=== PATIENT | female | born 1935 | race Hispanic/Latino ===

== ENCOUNTER 2018-12-19 11:02 | Day surgery (SDC) | payer MEDICARE ==
[2018-12-08 08:50] VITALS: BMI 29.2
[2018-12-19 12:05] LABS: BASO # 0.02 K/mm3 (0.0-2.0); BASO % 0.2 % (0.0-3.0); EOS % 0.3 % (1.5-5.0); HEMOGLOBIN 12.6 g/dL (12.0-16.0); LYMPH # 1.9 (1.2-3.4); LYMPH % 15.3 % (22.0-35.0); MEAN CELL VOLUME 93.1 fl (80.0-105.0); MEAN CORPUSCULAR HEMOGLOBIN 29.9 pg (25.0-35.0); MEAN CORPUSCULAR HGB CONC 32.1 g/dl (31.0-37.0); MEAN PLATELET VOLUME 10.1 fl (7.0-11.0); MONO % 8.6 % (1.0-6.0); RBC 4.22 10^6/uL (3.5-6.1); RED CELL DISTRIBUTION WIDTH 13.6 % (11.5-14.5); WHITE BLOOD COUNT 12.1 10^3/uL (4.5-11.0)
[2018-12-19 12:09] LABS: BLOOD UREA NITROGEN 17 mg/dL (7-21); CALCIUM 9.8 mg/dL (8.4-10.5); GFR NON-AFRICAN AMERICAN > 60; INR 1.11; PARTIAL THROMBOPLASTIN TIME 27.3 Seconds (26.9-38.3); PROTHROMBIN TIME 12.5 SECONDS (9.4-12.5)
[2018-12-19] MEDS ORDERED: Lidocaine PF 2% (5 ml) Inj (For Cardiac Arrhy) ONE (13:21)
[2018-12-19] MEDS ORDERED: Iodixanol 320 MG/ML 100 ML BOTTLE IV ONE (13:22)
[2018-12-19] MEDS ORDERED: Iodixanol 320 MG/ML 200 ML BOTTLE IV ONE (13:22)
[2018-12-19] MEDS ORDERED: Heparin 2,000 ML IV ONE (13:22)
[2018-12-19] MEDS ORDERED: Iohexol 350mgl/ml 50 ML ONE (13:22)
[2018-12-19] MEDS ORDERED: Adenosine 90 mg/30mL IV ONE (13:25)
[2018-12-19] MEDS ORDERED: Flumazenil 0.1 mg/ml Inj (5ml) IVP ONE (13:55)
[2018-12-19] MEDS ORDERED: Midazolam 2 MG/2 ML VIAL ONE ×3 (13:55→15:06)
[2018-12-19] MEDS ORDERED: Naloxone 0.4 mg/ml Inj (Adult) ONE (13:56)
[2018-12-19] MEDS ORDERED: Midazolam 2 MG/2 ML VIAL IV ONE ×2 (14:00→14:05)
[2018-12-19] MEDS ORDERED: DiphenhydrAMINE 50 mg/ml Inj ONE (15:50)
[2018-12-19] MEDS ORDERED: Sodium Chloride 0.9% 1,000 ML IV STA (16:12)
--- NOTE | 2018-12-19 17:08 | CARD ---
APPROVED REPORT Date of service: 12/19/2018 EKG Measurement Heart [id number] IN P17 [id number] <Conclusion> Normal sinus rhythm Baseline artifact normal ECG
[2018-12-19 19:08] VITALS: RESP 18; TEMP 98.5; O2SAT 96
[2018-12-19 19:48] LABS: HEMOGLOBIN 10.8 g/dL (12.0-16.0); MEAN CELL VOLUME 95.4 fl (80.0-105.0); RBC 3.51 10^6/uL (3.5-6.1); WHITE BLOOD COUNT 11.2 10^3/uL (4.5-11.0)
[2018-12-19 19:49] LABS: BASO # 0.11 K/mm3 (0.0-2.0); EOS % 0.1 % (1.5-5.0); LYMPH # 1.2 (1.2-3.4); LYMPH % 11.1 % (22.0-35.0); MEAN CORPUSCULAR HEMOGLOBIN 30.8 pg (25.0-35.0); MEAN CORPUSCULAR HGB CONC 32.2 g/dl (31.0-37.0); MEAN PLATELET VOLUME 10.6 fl (7.0-11.0); MONO # 0.9 (0.1-0.6); MONO % 7.8 % (1.0-6.0); RED CELL DISTRIBUTION WIDTH 13.9 % (11.5-14.5)
[2018-12-19 19:54] LABS: BLOOD UREA NITROGEN 17 mg/dL (7-21); CALCIUM 8.4 mg/dL (8.4-10.5); GFR NON-AFRICAN AMERICAN > 60
--- NOTE | 2018-12-19 22:42 | CARDCATH ---
PROCEDURE DATE: 12/19/2018 INDICATIONS: Ninfa Ochoa is an 83-year-old female with history of hypertension, diabetes, referred to me for evaluation of new onset dyspnea on exertion with activity. The patient underwent an echocardiogram and an exercise nuclear stress test which showed eccentric MR with positive abnormal stress test. She was therefore brought to the director of labor relations for further evaluation and treatment. PROCEDURE PERFORMED: Complete heart catheterization with right heart cath for hemodynamics and cardiac output. Left heart catheterization with selective left and right coronary angiogram, PTCA stenting of proximal RCA 99% stenosis, deployment of 3.0 x 15 [place] drug-eluting stent, regeneration from 95% down to 0% АЛЕКСАНДР-3 flow. A 6-[place] right femoral arterial access, 7-[place] right femoral venous access, Mynx closure device for hemostasis. TECHNIQUES OF PROCEDURE: After obtaining informed consent, the patient was brought to the cardiac cath suite in post-absorptive and non-sedated state. The patient was prepped and draped in the usual sterile fashion. A 2% lidocaine was used for infiltration of anesthesia. Using modified Seldinger technique, 6-[place] sheath was introduced into the right femoral artery and 7-[place] sheath was introduced into right femoral vein. Subsequently, under fluoroscopic guidance, the [place] catheter was advanced here into the IVC into the RA, RVP in wedge position. Hemodynamics were obtained and cardiac outputs were calculated using thermodilution method. HEMODYNAMICS OF THE RIGHT HEART CATHETERIZATION FINDINGS: RA mean was 8 mmHg. RV 39/2 with an end-diastolic of 12. PA 39/10 with a mean PA of 24. Pulmonary capillary wedge pressure was 17 with V-wave of 20. Using the thermodilution method, cardiac output was calculated to be 3.6 and cardiac index was 2 L/min/m2 area. After obtaining the right heart cath hemodynamics and cardiac output calculations, attention was then paid to the left coronary system under fluoroscopic guidance over an exchange length J-wire, pigtail catheter advanced into the LV. Simultaneous LV wedge, LVP, LVR, RV, and LVP hemodynamics were obtained. Subsequently, LV gram was obtained in the NO view. Left ventricular ejection fraction was 65% with EDP of 18. Subsequently, selective coronary angiogram to the left and right coronary system was obtained. CORONARY FINDINGS: Left main is a large sized vessel, bifurcates into left anterior descending and left circumflex coronary artery. Left anterior descending is a large-sized vessel which has a proximal high-grade 80% stenosis, gives off two medium-sized diagonal branches, tortuous vessel, nonobstructive. Left circumflex runs in the groove, is a medium-sized vessel, has a moderate 55% to 60% stenosis. RCA is a large-sized vessel with a proximal high-grade 99% occlusion and a distal nonobstructive 40% to 50% stenosis. TECHNIQUES OF INTERVENTION: After reviewing the above angiographic findings, it was decided to pursue with the intervention with RCA. A JR4 guiding catheter was used to engage the right coronary system. Subsequently, a [place] wire was used to cross the lesion. The lesion was serially dilated with a 2.0, 2.5 and a 3.0 noncompliant balloon and subsequently, a 3.0 x 15 [place] drug-eluting stent was deployed with regeneration from 99% down to 0% АЛЕКСАНДР-3 flow. Final angiogram done showed good АЛЕКСАНДР flow. IMPRESSION: Successful revascularization of the proximal right coronary artery high-grade stenosis, deployment of 3.0 x 15 [place] drug-eluting stent. High-grade proximal left anterior descending stenosis, moderate mitral regurgitation, normal cardiac output, normal ejection fraction. RECOMMENDATIONS: The patient can be discharged home in 3 hours. Keep the patient on dual antiplatelet therapy, aspirin and Plavix for one year. The patient was given a prescription for Plavix. Continue the patient on beta-blockers and guideline-directed therapy for CAD. The patient can be discharged home and will be brought back next 12/27/2018, for staged intervention of the proximal LAD. Thank you, Dr. Bonilla, for letting me participate in the care of your patient. Harjeet Chou MD cc: Enriqueta Bonilla MD
[2018-12-20 00:30] VITALS: BP 130/78; PULSE 73
== END 2018-12-19 23:00 | disposition home or self-care (01) ==
LOC: TEE 11:02 → 2RSO 17:42 → TEE 23:00
PROVIDERS: ATTEND Internal Medicine Interventional Cardiology
DX: I25.10 Atherosclerotic heart disease of native coronary artery without angina pectoris (principal); I34.0 Nonrheumatic mitral (valve) insufficiency; I10 Essential (primary) hypertension; E78.5 Hyperlipidemia, unspecified; E11.9 Type 2 diabetes mellitus without complications
CPT/HCPCS: 36415; 80048; 83036; 85025; 85175; 85610; 85730; 86850; 86900; 93005; 93312; 93460; 99152; 99153; C1725 ×3; C1760; C1769 ×3; C1874; C1887; C1894 ×2; C9600; J0153; J1200; J1644 ×2; J2250; J2310; J2405; J3010; J7030; Q9966; Q9967

== ENCOUNTER 2019-01-31 11:12 | Day surgery (SDC) | payer MEDICARE ==
[2019-01-05 08:49] VITALS: BMI 28.9
[2019-01-31 11:40] VITALS: O2SAT 97
[2019-01-31 11:56] LABS: BASO # 0.02 K/mm3 (0.0-2.0); BASO % 0.2 % (0.0-3.0); EOS # 0.1 (0.0-0.7); EOS % 0.9 % (1.5-5.0); HEMOGLOBIN 11.8 g/dL (12.0-16.0); LYMPH # 2.2 (1.2-3.4); LYMPH % 25.9 % (22.0-35.0); MEAN CELL VOLUME 92.3 fl (80.0-105.0); MEAN CORPUSCULAR HEMOGLOBIN 29.3 pg (25.0-35.0); MEAN CORPUSCULAR HGB CONC 31.7 g/dl (31.0-37.0); MEAN PLATELET VOLUME 10.2 fl (7.0-11.0); MONO # 0.5 (0.1-0.6); MONO % 6.1 % (1.0-6.0); RBC 4.03 10^6/uL (3.5-6.1); RED CELL DISTRIBUTION WIDTH 14.6 % (11.5-14.5); WHITE BLOOD COUNT 8.5 10^3/uL (4.5-11.0)
[2019-01-31 12:08] LABS: BLOOD UREA NITROGEN 21 mg/dL (7-21); CALCIUM 9.1 mg/dL (8.4-10.5); GFR NON-AFRICAN AMERICAN > 60; HDL CHOLESTEROL 63 mg/dL (29-60); INR 0.97; PARTIAL THROMBOPLASTIN TIME 32.3 Seconds (26.9-38.3)
[2019-01-31 12:18] LABS: LDL CHOLESTEROL 85 mg/dL (0-129)
[2019-01-31] MEDS ORDERED: Lidocaine PF 2% (5 ml) Inj (For Cardiac Arrhy) ONE ×2 (12:41→13:15)
[2019-01-31] MEDS ORDERED: Verapamil 0 ML ONE (12:42)
[2019-01-31] MEDS ORDERED: Iodixanol 320 MG/ML 200 ML BOTTLE IV ONE (12:43)
[2019-01-31] MEDS ORDERED: Midazolam 2 MG/2 ML VIAL ONE ×2 (12:47→12:57)
--- NOTE | 2019-01-31 13:04 | CARD ---
APPROVED REPORT Date of service: 01/31/2019 EKG Measurement Heart [id number] [id number] <Conclusion> Sinus bradycardia Otherwise normal ECG
[2019-01-31] MEDS ORDERED: DiphenhydrAMINE 50 mg/ml Inj ONE (13:08)
[2019-01-31] MEDS ORDERED: Sodium Chloride 0.9% 1,000 ML IV SCH (14:00)
--- NOTE | 2019-01-31 18:31 | CARD ---
APPROVED REPORT Date of service: 01/31/2019 EKG Measurement Heart [id number] <Conclusion> Sinus bradycardia Otherwise normal ECG
--- NOTE | 2019-01-31 19:25 | CARDCATH ---
PROCEDURE DATE: 01/31/2019 INDICATIONS: Ninfa Ochoa is an 83-year-old female with history of CAD status post angioplasty of RCA done about 4 weeks ago. She was brought first to the Interventional Radiology. PROCEDURE PERFORMED: Left heart catheterization with selective left and right coronary angiogram, percutaneous transluminal coronary angioplasty and stenting of the proximal left anterior descending, deployment of 3.0 x 22 My[place] drug-eluting stent, lesion reduction from 95% to 0% АЛЕКСАНДР-3 flow. A 6-[place] left radial arterial access, wristband for hemostasis. ANGIOGRAPHIC FINDINGS: Right coronary angiogram showed proximal RCA stent patent, mild RCA nonobstructive disease, right dominant circulation, left coronary system showed circumflex calcified, 80% stenosis. INTERVENTION PERFORMED: EBU 3.5 guiding catheter was used to engage the left coronary system. Lesion was wired using a 265 Network wire. It was predilated with a 2.5 and a 3.0 noncompliant balloon and subsequently stented with a 3.0 x 22 My[place] drug-eluting stent while the angiogram. Final angiogram showed regeneration down to 0% and АЛЕКСАНДР-3 flow. IMPRESSION: Successful revascularization of the proximal left anterior descending high grade calcific stenosis, deployment of 3.0 x 22 [place] drug-eluting stent. RECOMMENDATIONS: The patient can be discharged home in 6 hours. The patient needs to follow up with Dr. Manuel Schwarz for evaluation of mitral valve repair. Thank you for letting me participate in the care of your patient. Harjeet Chou MD
[2019-01-31 21:39] VITALS: BP 126/61; PULSE 70; RESP 20; TEMP 98.6
== END 2019-01-31 21:16 | disposition home or self-care (01) ==
LOC: CATH 11:12 → 2RSO 14:02 → CATH 21:16
PROVIDERS: ATTEND Internal Medicine Interventional Cardiology
DX: I25.10 Atherosclerotic heart disease of native coronary artery without angina pectoris (principal); Z95.5 Presence of coronary angioplasty implant and graft; G62.9 Polyneuropathy, unspecified
CPT/HCPCS: 36415; 80048; 80061; 85025; 85175; 85610; 85730; 86850; 86900; 93005; 93454; 99152; 99153; C1725 ×2; C1760; C1769 ×2; C1874; C1887; C1894; C9600; J1200; J1644 ×2; J2250; J3010; J7030; J7040; Q9966